=== PATIENT | male | born 1945 | race Caucasian/White ===

== ENCOUNTER 2018-11-20 09:31 | Outpatient (CLI) | payer MEDICARE ==
[~2018-11-20 09:31] MED LIST: ASPI-611 PO; ASPI1TAB5 PO; LOSA50TA3 PO; NAPR220C15 PO
== END 2018-11-20 23:59 | disposition home or self-care (01) ==
LOC: RAD 09:31
PROVIDERS: ATTEND Family Medicine
DX: K44.9 Diaphragmatic hernia without obstruction or gangrene (principal); K22.8 Other specified diseases of esophagus; Z87.891 Personal history of nicotine dependence
CPT/HCPCS: 74241